=== PATIENT | female | born 1955 | race Caucasian/White ===

== ENCOUNTER 2016-06-19 18:00 | Inpatient (IN) | payer BC ==
[~2016-06-19 18:00] MED LIST: ARAVA DPS20 MG PO; ARAVA10 MG PO; CARDIZEM CD180 MG PO; CARTIA XT180 MG PO; DELTASONE DPS10 MG PO; DEMADEX20 MG PO; DIFLUCAN DPS100 MG PO; DUONEB DPS3 ML IH; DUONEB DPS3 ML PO; ELAVIL-DPS10 MG PO; ELIQUIS5 MG PO; ENBREL25 MG IM; ENBREL50 MG/1 M1 SQ; ENBREL50 MG/1 ML IM; FORTEO600 MCG/2. SQ; HYDROCODONE 5MG/5 MG PO; LEVAQUIN DPS500 MG PO; LIPITOR DPS20 MG PO; LOPRESSOR DPS100 MG PO; LOTENSIN DPS20 MG PO; MAALOX DPS30 ML PO; MAG-OX400 MG PO; MYCOSTATIN PWD15 GM TP; NEURONTIN DPS300 MG PO; NEURONTIN DPS600 MG PO; NITROSTAT0.4 MG SL; NORCO 5-325 TA1 EACH PO; PEPCID DPS20 MG PO; PROVENTIL HFA6.7 GM IH; PROVENTIL2.5 MG/3 M IH; PROZAC DPS20 MG PO; ROCALTROL DP0.25 MCG PO; SURFAK DPS240 MG PO; SURFAK240 MG PO; TYLENOL DPS325 MG PO; XANAX DPS0.25 MG PO; ZANAFLEX4 MG PO; ZEMPLAR2 MCG PO; ZOFRAN8 MG PO
[2016-07-21] MEDS ORDERED: CELEXA DPS20 MG PO (13:34)
[2016-07-21] MEDS ORDERED: DULCOLAX-DPS10 MG PR (13:41)
[2016-07-21] MEDS ORDERED: ENEMA READY TO133 ML PR (13:41)
[2016-07-21] MEDS ORDERED: BENADRYL-DPS25 MG PO (13:42)
[2016-07-21] MEDS ORDERED: COMPAZINE DPS5 MG PO (13:43)
[2016-07-21] MEDS ORDERED: SENOKOT S1 TAB PO (13:43)
[2016-07-21] MEDS ORDERED: VANCOCIN125 MG PO (13:44)
[2016-07-21] MEDS ORDERED: TIAZAC180 MG PO (13:44)
[2016-07-21] MEDS ORDERED: VITAMIN D1000 UNI1 PO (13:45)
[2016-07-21] MEDS ORDERED: MILK OF MAGNESI10 ML PO (13:45)
[2016-07-21] MEDS ORDERED: CUBICIN500 MG IV (13:46)
[2016-09-01] MEDS ORDERED: NEURONTIN DPS300 MG PO (19:38)
[2016-09-01] MEDS ORDERED: DIAMOX DPS250 MG PO (19:38)
[2016-09-01] MEDS ORDERED: PEPCID DPS20 MG PO (19:38)
[2016-09-01] MEDS ORDERED: KLOR-CON M2020 ME1 PO (19:38)
[2016-09-01] MEDS ORDERED: CELEXA DPS20 MG PO (19:38)
[2016-09-01] MEDS ORDERED: DEMADEX20 MG PO (19:38)
[2016-09-01] MEDS ORDERED: VITAMIN D1000 UNI1 PO (19:39)
[2016-09-01] MEDS ORDERED: VANCOMYCIN500 MG/20 PO (19:39)
[2016-09-01] MEDS ORDERED: CUBICIN500 MG IV (19:40)
[2016-09-01] MEDS ORDERED: NORMAL SALINE FL5 ML IV (19:40)
[2016-09-01] MEDS ORDERED: DAKIN S TP (19:40)
[2016-09-01] MEDS ORDERED: BENADRYL-DPS25 MG PO (19:41)
[2016-09-01] MEDS ORDERED: NORCO 10-325 T1 EACH PO (19:41)
[2016-09-01] MEDS ORDERED: ZOSYN 3.373.375 GM/5 IV (19:41)
[2016-09-01] MEDS ORDERED: COMPAZINE DPS5 MG PO (19:41)
[2016-09-01] MEDS ORDERED: NORCO 5-325 TA1 EACH PO (19:42)
[2016-09-01] MEDS ORDERED: NORCO 7.5-3251 EACH PO (19:42)
[2016-09-01] MEDS ORDERED: MILK OF MAGNESI10 ML PO (19:42)
[2016-09-01] MEDS ORDERED: MAALOX DPS30 ML PO (19:42)
[2016-09-01] MEDS ORDERED: SENOKOT S1 TAB PO (19:43)
[2016-09-01] MEDS ORDERED: TYLENOL DPS325 MG PO (19:45)
[2016-09-01] MEDS ORDERED: SURFAK DPS240 MG PO (19:45)
[2016-09-01] MEDS ORDERED: TYLENOL DP650 MG/20. PO (19:46)
[2016-09-01] MEDS ORDERED: XANAX DPS0.25 MG PO (19:46)
[2016-09-01] MEDS ORDERED: DUONEB DPS3 ML IH (19:46)
[2016-09-01] MEDS ORDERED: PROVENTIL HFA6.7 GM IH (19:47)
[2016-09-01] MEDS ORDERED: DULCOLAX-DPS10 MG PR (19:47)
== END 2016-07-19 14:27 | DRG 981 ==
DX: L02.416 Cutaneous abscess of left lower limb (principal); G93.40 Encephalopathy, unspecified; I47.2 Ventricular tachycardia; A04.7 Enterocolitis due to Clostridium difficile; Q44.6 Cystic disease of liver; I12.9 Hypertensive chronic kidney disease with stage 1 through stage 4 chronic kidney disease, or unspecified chronic kidney disease; I48.0 Paroxysmal atrial fibrillation; B37.49 Other urogenital candidiasis; N18.4 Chronic kidney disease, stage 4 (severe); J98.11 Atelectasis; Q61.3 Polycystic kidney, unspecified; Z68.43 Body mass index [BMI] 50.0-59.9, adult; M84.359A Stress fracture, hip, unspecified, initial encounter for fracture; E86.0 Dehydration; M84.351A Stress fracture, right femur, initial encounter for fracture; L03.032 Cellulitis of left toe; L03.115 Cellulitis of right lower limb; L03.116 Cellulitis of left lower limb; M81.0 Age-related osteoporosis without current pathological fracture; J44.9 Chronic obstructive pulmonary disease, unspecified; B96.5 Pseudomonas (aeruginosa) (mallei) (pseudomallei) as the cause of diseases classified elsewhere; J45.909 Unspecified asthma, uncomplicated; M10.9 Gout, unspecified; E78.5 Hyperlipidemia, unspecified; E21.3 Hyperparathyroidism, unspecified; D63.8 Anemia in other chronic diseases classified elsewhere; M06.9 Rheumatoid arthritis, unspecified; G47.33 Obstructive sleep apnea (adult) (pediatric); E66.01 Morbid (severe) obesity due to excess calories; M19.90 Unspecified osteoarthritis, unspecified site; F32.9 Major depressive disorder, single episode, unspecified; E87.6 Hypokalemia; R50.82 Postprocedural fever; E87.70 Fluid overload, unspecified; M47.9 Spondylosis, unspecified; E83.42 Hypomagnesemia; E55.9 Vitamin D deficiency, unspecified; Z79.01 Long term (current) use of anticoagulants; Z96.653 Presence of artificial knee joint, bilateral; Z85.3 Personal history of malignant neoplasm of breast; Z86.711 Personal history of pulmonary embolism; Z87.891 Personal history of nicotine dependence; Z82.49 Family history of ischemic heart disease and other diseases of the circulatory system; Z86.718 Personal history of other venous thrombosis and embolism; Z79.899 Other long term (current) drug therapy

== ENCOUNTER 2016-08-13 11:42 | Emergency (ER) | payer BC ==
[~2016-08-13 11:42] MED LIST changes: +BENADRYL-DPS25 MG PO; +CELEXA DPS20 MG PO; +COMPAZINE DPS5 MG PO; +CUBICIN500 MG IV; +DULCOLAX-DPS10 MG PR; +ENEMA READY TO133 ML PR; +MILK OF MAGNESI10 ML PO; +SENOKOT S1 TAB PO; +TIAZAC180 MG PO; +VANCOCIN125 MG PO; +VITAMIN D1000 UNI1 PO
--- NOTE | 2016-08-19 08:15 | ER ---
ADMIT: 08/13/2016 RM/LOC: ER [facility] MR#: [id number] [address] [address] [place] [address] Emergency Room Report SEX: F AGE: 61 : 1955 DATE: 08/13/2016 HISTORY OF PRESENT ILLNESS: A 61-year-old morbidly obese female, who had surgery in recent past on right lower extremity, apparently developed a postop complication consisting of serous drainage from the operation site per Dr. Shane, he has been following it as an outpatient. She apparently developed increasing erythema over the area yesterday and today. Dr. Shane asked she be evaluated in the Emergency Department. The patient states she is unable to see that area, so she does not know how extensive the redness is, but she did say that she had increased drainage from the wound site earlier in the day. See history and physical for remainder of information. Her white count was normal, her hemoglobin was 9.1. Lactic acid of 0.9. Chemistries were significant for creatinine 1.5. Blood cultures were obtained. I did discuss her care and lab findings and results with Dr. Shane, who requested that she be given vancomycin 1 g in the Emergency Department, send back to the care facility while he was going to follow up with apparent washout of the area this Sunday. He further requested Bactrim be added to her antibiotic regime. Going to discharge for prescription of Bactrim. DIAGNOSIS: Cellulitis. Harvinder Tadeo MD/ hilary JOB #: [id number] CC: Harvinder Tadeo MD, Attending Physician
[2016-09-01] MEDS ORDERED: KLOR-CON M2020 ME1 PO (19:38)
[2016-09-01] MEDS ORDERED: DEMADEX20 MG PO (19:38)
[2016-09-01] MEDS ORDERED: PEPCID DPS20 MG PO (19:38)
[2016-09-01] MEDS ORDERED: DIAMOX DPS250 MG PO (19:38)
[2016-09-01] MEDS ORDERED: NEURONTIN DPS300 MG PO (19:38)
[2016-09-01] MEDS ORDERED: CELEXA DPS20 MG PO (19:38)
[2016-09-01] MEDS ORDERED: VANCOMYCIN500 MG/20 PO (19:39)
[2016-09-01] MEDS ORDERED: VITAMIN D1000 UNI1 PO (19:39)
[2016-09-01] MEDS ORDERED: DAKIN S TP (19:40)
[2016-09-01] MEDS ORDERED: CUBICIN500 MG IV (19:40)
[2016-09-01] MEDS ORDERED: NORMAL SALINE FL5 ML IV (19:40)
[2016-09-01] MEDS ORDERED: COMPAZINE DPS5 MG PO (19:41)
[2016-09-01] MEDS ORDERED: BENADRYL-DPS25 MG PO (19:41)
[2016-09-01] MEDS ORDERED: NORCO 10-325 T1 EACH PO (19:41)
[2016-09-01] MEDS ORDERED: ZOSYN 3.373.375 GM/5 IV (19:41)
[2016-09-01] MEDS ORDERED: MILK OF MAGNESI10 ML PO (19:42)
[2016-09-01] MEDS ORDERED: MAALOX DPS30 ML PO (19:42)
[2016-09-01] MEDS ORDERED: NORCO 5-325 TA1 EACH PO (19:42)
[2016-09-01] MEDS ORDERED: NORCO 7.5-3251 EACH PO (19:42)
[2016-09-01] MEDS ORDERED: SENOKOT S1 TAB PO (19:43)
[2016-09-01] MEDS ORDERED: SURFAK DPS240 MG PO (19:45)
[2016-09-01] MEDS ORDERED: TYLENOL DPS325 MG PO (19:45)
[2016-09-01] MEDS ORDERED: DUONEB DPS3 ML IH (19:46)
[2016-09-01] MEDS ORDERED: XANAX DPS0.25 MG PO (19:46)
[2016-09-01] MEDS ORDERED: TYLENOL DP650 MG/20. PO (19:46)
[2016-09-01] MEDS ORDERED: PROVENTIL HFA6.7 GM IH (19:47)
[2016-09-01] MEDS ORDERED: DULCOLAX-DPS10 MG PR (19:47)
== END 2016-08-13 16:37 | disposition home or self-care (01) ==
LOC: ER 11:42
DX: L03.115 Cellulitis of right lower limb (principal); Z79.899 Other long term (current) drug therapy

== ENCOUNTER 2016-08-16 06:28 | Inpatient (IN) | payer BC ==
[~2016-08-16] VITALS: Ht 172.7 cm; Wt 174.3 kg
--- NOTE | ~2016-08-16 | WND ---
ADMIT: 08/16/2016 RM/LOC: 528 [facility] MR#: [id number] [facility] [id number] [address] [address] [place] [address] Wound Care Clinic SEX: F AGE: 61 : 1955 DATE OF VISIT: 08/23/2016 TIME IN: 1545 hours. TIME OUT: 1610 hours. REASON FOR VISIT: Wound VAC dressing change to right hip. HISTORY OF PRESENT ILLNESS: This is a 61-year-old female who presented to the emergency room on 08/13/2016 with a history of surgery on the right lower extremity. She developed a postoperative complication consisting of serous drainage. Dr. Shane had performed a right femoral nailing with the TFN on 07/14/2016. She was being followed by Dr. Shane. However, it became more red and she noticed increased drainage. So, she presented to the emergency room. She received a dose of vancomycin. Then, on 08/21/2016, she was taken to surgery by Dr. Shane for an irrigation and debridement wound VAC placement to the right hip. Dr. Hale was consulted from Infectious Disease. She was to return to surgery on August 19 for another VAC dressing change. However, she is noted to have a disconjugate gaze. Therefore, Neurology was consulted. 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 She continues on wound VAC therapy and her wound VAC dressing was changed by Wound Care on 08/21/2016. Wound Care returns today for further VAC change. PAST MEDICAL HISTORY: C. difficile enteritis. Left hip total arthroplasty with subcutaneous abscess. Right hip nondisplaced fracture, status post nailing by Dr. Shane. Right hip incisional infection. History of DVT and pulmonary emboli, on Eliquis. Chronic obstructive pulmonary disease. Chronic kidney disease. Polycystic liver and kidney. Hypertension. Hyperlipidemia. Rheumatoid arthritis. Prior history of breast cancer. Obstructive sleep apnea. Morbid obesity. Prior history of pulmonary emboli. Osteoporosis. Paroxysmal atrial fibrillation. Episodes of V-Tach. PAST SURGICAL HISTORY: Includes bilateral total knee, replacement of left hip, pinning of right hip. ALLERGIES: Entex LA, Biaxin, Femara, macrolide antibiotics, guaifenesin, phenylephrine, clarithromycin, metoprolol, phenylpropanolamine, letrozole, and adalimumab. CURRENT MEDICATIONS: Per the MAR. Please see the MAR for further details. 1. Celexa. 2. Diamox. 3. Neurontin. 4. Pepcid. 5. Vancomycin. 6. Vitamin D. 7. Cubicin. 8. Zosyn. ADMIT: 08/16/2016 RM/LOC: 528 [facility] MR#: [id number] [facility] [address] [address] [place] [address] Wound Care Clinic SEX: F AGE: 61 : 1955 PRN medications: 1. Benadryl. 2. Compazine. 3. Flexeril. 4. Hydrocodone/acetaminophen. 5. Maalox. 6. Milk of magnesia. 7. Senokot. 8. Surfak. 9. Tylenol. 10.Xanax. 11.DuoNeb. 12.Proventil. 13.Dulcolax suppository. 14.Fleets enema. 15.Tylenol suppository. 16.Nitrostat. 17.Mycostatin powder. 18.Benadryl. 19.Morphine. 20.Phenergan. SOCIAL HISTORY: She is . Former smoker. Does not consume alcoholic beverages. Unable to work recently because of ongoing health issues. Currently at [facility]. FAMILY HISTORY: Positive for coronary artery disease, polycystic disease, breast cancer, asthma, and hypertension. REVIEW OF SYSTEMS: She is examined in her hospital room where she is awake, alert, and oriented x3. She had an MRI earlier today. She denies any recent fever or chills. No nausea or vomiting. No cough, cold, or chest pain. She does have pain in her hip that she rates to an 8. She is on a low air loss mattress. PHYSICAL EXAMINATION: VITAL SIGNS: 97.5, 89, 18, blood pressure 141/79, O2 sats with nasal cannula is 98%. Focused exam is to her right hip. She has an incisional dehiscence from the recent I and D that measures 10.5 cm x 3 cm, depth of 7.5 cm. It does have visible firm red granulation tissue noted, serosanguineous drainage in the canister. No surrounding erythema or induration. More proximal to this is an area of skin tear with denudement that measures 1.5 x 2 cm. Red moist wound base. ASSESSMENT: 1. Full-thickness right hip wound, status post I and D of infection. ADMIT: 08/16/2016 RM/LOC: 528 [facility] MR#: [id number] [address] [place] [id number] [place] [address] Wound Care Clinic SEX: F AGE: 61 : 1955 2. Category 3 skin tear, right hip. TREATMENT PLAN: The old VAC dressing was removed assuring that 1 piece of black foam was removed. The wound was rinsed vigorously with normal saline and patted dry. No Sting Barrier wipe was placed to periwound area and over the skin tear. This was allowed to dry. Wound edges were protected with wound drape. One piece of black foam was placed in the base of the wound. The system was sealed and the VAC reinstituted at -125 mmHg continuous. To the skin tear, the Mepilex border was applied. We will continue the wound VAC dressing changes on Sunday, Sunday, and Sunday. Thank you for this referral. Laura Alarcon APRN/ hilary JOB #: [id number] CC: Efraín Shane, Attending Physician Alexandru Chris, Family Physician
--- NOTE | 2016-08-17 06:47 | CO ---
ADMIT: 08/16/2016 RM/LOC: 503 [facility] MR#: [id number] [address] [address] [place] [address] Consultation SEX: F AGE: 61 : 1955 DATE OF CONSULTATION: 08/16/2016 ATTENDING PHYSICIAN: Efraín Shane CONSULTING PHYSICIAN: Alexandru Chris MD CHIEF COMPLAINT: Abscessed right hip. HISTORY OF PRESENT ILLNESS: Renetta is a 61-year-old female with multiple hospitalizations here at [facility] over the last 6 months. She underwent incision and drainage of a right subcutaneous abscess today by Dr. Shane. Originally scheduled for outpatient; however, the abscess was deep enough nearly down to the tremayne that was placed for her fractured hip. Therefore, she is admitted to hospital for further wound treatment and wound VAC, IV antibiotics. She had hospitalization here at [facility] in May of this year for a subcutaneous abscess on her left hip. She has a previous history of left total hip arthroplasty. She developed subcutaneous abscess, was I and D'd, placed on antibiotics, developed C. diff enteritis. She also had right hip pain, was found on x-ray to have a nondisplaced fracture of right hip, had transfemoral nailing of the right hip by Dr. Shane on July 14 of this year. Due to weakness and inability care for herself, she was admitted to [facility] for rehab. She has been going there and getting physical therapy and rehab. She developed increased pain, swelling, discomfort over the right hip incision and was followed by Dr. Shane as an outpatient. He drained her in the office, felt it was a seroma. It was not healing, so she was brought into the operating room today where she had opening of the area and it showed a fairly deep abscess and wound VAC was placed. In addition to the other complications, she has multiple other medical problems well outlined in recent history and physicals. Of importance, she has history of DVT and pulmonary emboli, has been on Eliquis. This has been stopped for the last 5 days in anticipation of this surgery. Currently, she feels shortness of breath if she lies flat, but sitting up, she feels okay. She is not having any chest pain. She denies any leg or calf pain. PAST MEDICAL HISTORY: Well-outlined in recent history and physical. She has had multiple hospitalizations here, most recently being in June for the nailing of her right hip for nondisplaced fracture. Her other significant medical problems include: 1. Chronic obstructive pulmonary disease. 2. Chronic kidney disease. 3. Polycystic kidney and liver. 4. Hypertension. 5. Hyperlipidemia. ADMIT: 08/16/2016 RM/LOC: 503 [facility] MR#: [id number] [address] [address] [place] [address] Consultation SEX: F AGE: 61 : 1955 6. Rheumatoid arthritis. 7. Prior history of breast cancer. 8. Obstructive sleep apnea. 9. Morbid obesity. 10.Prior history of pulmonary emboli. 11.Osteoporosis. 12.History of paroxysmal atrial fibrillation. 13.History of episodes of V-Tach. PAST SURGICAL HISTORY: Previous surgeries include bilateral total knee replacement of the left hip, pinning I believe, and then the recent right hip pinning. CURRENT MEDICATIONS: 1. Benadryl. 2. Compazine. 3. Celexa. 4. Dulcolax. 5. DuoNeb. 6. Eliquis 5 mg daily. 7. Lortab p.r.n. for pain. 8. Imodium p.r.n. for diarrhea. 9. Lipitor 20 mg at bedtime. 10.Lotensin 20 mg daily. 11.Neurontin 300 mg b.i.d. 12.Nystatin powder. 13.Pepcid 20 mg b.i.d. 14.Proventil inhaler p.r.n. 15.Surfak p.r.n. 16.Tiazac 180 mg daily. 17.Vitamin D daily. SOCIAL HISTORY: All unchanged other than noted above. Refer to recent history and physical. FAMILY HISTORY: All unchanged other than noted above. Refer to recent history and physical. REVIEW OF SYSTEMS: All unchanged other than noted above. Refer to recent history and physical. PHYSICAL EXAMINATION: GENERAL: A 61-year-old female. She is alert, cooperative, oriented x3. VITAL SIGNS: At this time were stable. BP is 138/88, respiratory rate is 22, temp 98.2. O2 saturation with oxygen on is 95% at 2 L. HEENT: Eyes PERRL. EOMs intact. Throat is moist, not inflamed. NECK: Supple. LUNGS: Occasional expiratory wheeze. No rales, rhonchi. No focal wheezing. ADMIT: 08/16/2016 RM/LOC: 503 [facility] MR#: [id number] [address] [place] [phone] [place] [address] Consultation SEX: F AGE: 61 : 1955 No respiratory distress. HEART: Regular rate. No murmur. BREASTS: Not examined. ABDOMEN: Morbidly obese with large palpable masses consistent with her polycystic liver and polycystic kidneys. GENITOURINARY: Deferred. RECTAL: Deferred. EXTREMITIES: She has marked venous stasis edema of both lower extremities. SKIN: She has marked edema of the panniculus both on the right and left sides with some peau d'orange effect of the skin due to subcutaneous edema. She does have a wound VAC in place over her right hip with suction in place. DIAGNOSTIC IMPRESSION: 1. Status post I and D of deep abscess, right hip. 2. Status post transfemoral nailing of the right hip on July 14 of this year. 3. Status post I and D of left subcutaneous hip abscess on June 20 of this year. 4. Morbid obesity. 5. Recent Clostridium difficile enteritis. 6. History of deep vein thrombosis, pulmonary emboli, recently on Eliquis but discontinued. 7. Chronic kidney disease. 8. Hypertension. 9. Anemia of chronic disease. 10.Osteoporosis. 11.Sleep apnea, on CPAP. 12.Hyperlipidemia. 13.Rheumatoid arthritis. PLAN: We will start patient on IV Zosyn and vancomycin. Infectious Disease has been consulted. We will defer to their judgment on antibiotic usage. She is at increased risk for C. diff enteritis. We will start on Lovenox subcutaneously for DVT prevention with her history of previous clots and her morbid obesity. She is at extreme high risk for recurrent clots contributed to by her inactivity. Alexandru Chris MD/ hilary JOB #: [id number] CC: Efraín Shane, Attending Physician Alexandru Chris, Family Physician
--- NOTE | 2016-08-18 07:48 | OR ---
ADMIT: 08/16/2016 RM/LOC: 503 [facility] MR#: [id number] [address] [address] [place] [address] Operative/Delivery Room Report SEX: F AGE: 61 : 1955 SURGERY DATE: 08/16/2016 SURGEON: Efraín Shane MD INTEGRATION LEAD: Isaiah Oliveira PA-C. PREOPERATIVE DIAGNOSIS: Right hip infection. POSTOPERATIVE DIAGNOSIS: Right hip infection. PROCEDURE PERFORMED: Irrigation, debridement and wound VAC placement of the right hip infection. BLOOD LOSS: Twenty. Did take cultures, tissues and swab. COMPLICATIONS: None. INDICATIONS: Ms. Stokes is a 61-year-old female, morbidly obese, had a stress fracture in the right hip that was found while she was an inpatient for a fever of unknown origin with an abscess in her left hip, etc. After waiting as long as I possibly could for nearly a month, it was finally determined by both the Infectious Disease and her primary medical doctor that she was as stable as possible for surgery and cleared of infection and was okay to have surgery. I went ahead with a TFN for the right subtroch stress fracture, that was about a month ago. Subsequently, the most proximal portion of the incision failed to heal, had persistent open wound about half a cm with serous drainage. I attempted to watch this with just continued wound care for a few weeks, put on antibiotics about a week ago. It failed to resolve and has been now about four weeks so we offered to go ahead and bring her in and wash it out and she is here for that now. DESCRIPTION OF PROCEDURE: The patient was identified in the preoperative holding area. Informed consent was confirmed, site was marked. Brought to the OR. General anesthesia was induced. We put her in the lateral decubitus position with the right hip up, prepped and draped in the usual sterile fashion. Time-out was performed. Preop antibiotics were held until we got culture sample. Made an incision through the old incision, basically opened up that proximal incision back up where the drainage was. After took culture palpated and it seemed to track down to the greater trochanter. Did not tunnel anywhere deep. I did not feel any exposed metal it but did go right down to the trochanter. There was some cloudy purulent appearing fluid in there. It looked more infectious than fat necrosis to me, but no real big pocket of pus or anything in there. Once we got it opened up and kind of found the extent of the tunneling in the pocket there, had it opened up quite a bit and excised the nonhealing portion of the skin and suture material and kind of what appeared to be scarred down and fat. Send that for culture ADMIT: 08/16/2016 RM/LOC: 503 [facility] MR#: [id number] [address] [address] [place] [address] Operative/Delivery Room Report SEX: F AGE: 61 : 1955 and then irrigated copiously with 3 L of normal saline with bacitracin and then soaked it in 3% Betadine solution of a L of that and then washed it with another 3 L of normal saline with bacitracin. Then I placed about 2 g of Vanco powder deep within the wound and then put a wound VAC in place set to suction without any problems. We then brought her to her hospital bed, extubated her, brought to the postop care in good condition. No complications. Postoperatively, I am going to go ahead and admit her to the hospital. Get Medicine and Infectious Disease to consult. We will keep the wound VAC running at continuous suction at 125, to be changed every three days. We will await culture results and recommendations by the Infectious Disease. We will plan on revisiting the wound if needed for a second-look later this wee depending on the culture results. Efraín Shane MD/ marilee JOB #: [id number] CC: Efraín Shane, Attending Physician Alexandru Chris, Family Physician
--- NOTE | 2016-08-25 12:59 | CO ---
ADMIT: 08/16/2016 RM/LOC: 528 [facility] MR#: [id number] [address] [address] [place] [address] Consultation SEX: F AGE: 61 : 1955 DATE OF CONSULTATION: 08/17/2016 ATTENDING PHYSICIAN: Efraín Shane CONSULTING PHYSICIAN: Kerrie Hale MD REASON FOR CONSULT: Right hip infection. Thank you, Dr. Shane, for the consult and involving me in this patient's care. HISTORY OF PRESENT ILLNESS: Ms. Stokes is a 61-year-old woman with multiple medical problems, well known to me, presented with complaint of right hip pain. She had a prolonged hospital course in June where she was diagnosed with left thigh multi-drug resistant pseudomonas infection and was treated with antibiotics. Subsequently, she was noted to have right femur nondisplaced fracture and underwent a right femoral nailing with a TFN on July 14, [address] Shane. Apparently, there was some increased pain, redness, and swelling over the right hip incision and the most proximal portion of the incision failed to heal with persistent serous drainage. She was started on oral Bactrim, which did not improve her symptoms. Hence, she was admitted yesterday and underwent irrigation and debridement and wound VAC placement of the right hip infection. Per the operative note, there was cloudy purulent fluid tunneling and tracking down to the greater trochanter. He did not feel any exposed metal in the OR. The cultures are pending at this time. At present, the patient denies any complaints. During her last hospital course, she also had Clostridium difficile diarrhea and she denies any episodes of diarrhea during this hospital course. PAST MEDICAL HISTORY: 1. Asthma. 2. Remote history of breast cancer status post lumpectomy. 3. Chronic kidney disease secondary to polycystic kidney disease. 4. Hypertension. 5. Hyperlipidemia. 6. Left thigh multi-drug resistant pseudomonas abscess status post drainage. 7. Sleep apnea. 8. Morbid obesity. 9. Clostridium difficile colitis. 10.Rheumatoid arthritis. 11.Gout. 12.Lumbar spondylosis. 13.History of deep venous thrombosis and pulmonary embolism. 14.Atrial fibrillation. PAST SURGICAL HISTORY: 1. Bilateral knee replacement. 2. Left subtrochanteric femur fracture. 3. Right femur fracture repair. ADMIT: 08/16/2016 RM/LOC: 528 [facility] MR#: [id number] [address] [address] [place] [address] Consultation SEX: F AGE: 61 : 1955 4. Shoulder surgery. ALLERGIES: MACROLIDE, PHENYLEPHRINE, GUAIFENESIN, CLARITHROMYCIN, LETROZOLE, AND ADALIMUMAB. CURRENT MEDICATIONS: 1. Celexa. 2. Lipitor. 3. Lotensin. 4. Neurontin. 5. Pepcid. 6. Tiazac. 7. Vitamin D. 8. Ancef. 9. Vancomycin 1.75 g every 12 hours. 10.Zosyn 3.375 g every 8 hours, which was stopped today. SOCIAL HISTORY: The patient currently lives in a senior living. Denies any smoking, alcohol, or recreational drug use. FAMILY HISTORY: Significant for breast cancer in her sister. REVIEW OF SYSTEMS: Ten-point review of systems negative except as mentioned in HPI. PHYSICAL EXAMINATION: VITAL SIGNS: Current temperature 99.2, T-max 101.1, heart rate 76, respirations 16, blood pressure 104/56, and 99% on 2 L. GENERAL: In no acute distress. HEENT: Head is normocephalic and atraumatic. Extraocular movements intact. LYMPH: No palpable anterior/posterior cervical or supraclavicular lymphadenopathy. CHEST: Decreased breath sounds bilaterally. No wheezes, rales, or rhonchi. CARDIOVASCULAR: S1, S2 heard. Regular rate and rhythm. ABDOMEN: Soft, obese, nontender. MUSCULOSKELETAL: The right hip, there is significant erythema around her thigh prior incision site. There is a wound VAC on the proximal incision site. Mild tenderness to palpation. Her right knee is mildly warm to touch and tender on deep palpation. Left knee unremarkable. PSYCH: Normal affect. Memory intact. DATA REVIEW: Blood cultures are no growth to date. CBC today shows white count of 5.5, hemoglobin 9.1, and platelet count 137. BMP shows creatinine of 1.8. The wound cultures are pending at this time. ASSESSMENT AND PLAN: 1. Right hip wound dehiscence and infection status post irrigation and drainage and wound VAC placement postop day 1. Cultures are pending at this time. She has a history of prior multi-drug resistant pseudomonas. ADMIT: 08/16/2016 RM/LOC: 528 [facility] MR#: [id number] [address] [place] [phone] [facility] [place] [place] [address] Consultation SEX: F AGE: 61 : 1955 I will restart her Zosyn 3.375 g every 8 hours and add daptomycin 6 mg/kg IV once daily. I will check a baseline creatine kinase level. We will narrow antibiotics after culture is finalized. She has hardware in her right hip hence we will have to treat her with prolonged course of antibiotics. 2. History of Clostridium difficile colitis. I will start her empirically on oral vancomycin 125 mg every 6 hours. 3. Chronic kidney disease. 4. Obesity. 5. Bilateral total knee arthroplasty. Her right knee is mildly warm to touch. We will monitor closely. 6. Atrial fibrillation. 7. Obesity. 8. Gout. 9. History of deep venous thrombosis, currently off Eliquis. 10.Osteoporosis. 11.Rheumatoid arthritis. Thank you for the consult, and I will continue to follow the patient. Kerrie Hale MD/ hilary JOB #: [id number] CC: Efraín Shane, Attending Physician Alexandru Chris, Family Physician
--- NOTE | 2016-08-25 16:04 | CO ---
ADMIT: 08/16/2016 RM/LOC: 528 [facility] MR#: [id number] [address] [address] [place] [address] Consultation SEX: F AGE: 61 : 1955 DATE OF CONSULTATION: 08/24/2016 ATTENDING PHYSICIAN: Efraín Shane CONSULTING PHYSICIAN: Mayi Johnson MD REASON FOR CONSULTATION: Chronic kidney disease stage 4, contrast-induced nephropathy prophylaxis. HISTORY OF PRESENT ILLNESS: Renetta is a 61-year-old female, who is well known to me. She has chronic kidney disease stage 4, secondary to polycystic kidney disease. She has had several hospitalizations over the last few months. She was admitted at this time with left hip pain. She was admitted initially to the hospital with hip pain. She was eventually found to have a right hip abscess that she is status post I and D. During this hospitalization, she was noted to have double vision and there was a concern for cavernous sinus thrombosis. She ended up needing a CT scan with contrast and I was consulted for contrast-induced nephropathy prophylaxis. I give her some IV fluids overnight that were bicarbonate containing. We also gave her a dose of N- acetylcysteine and she is receiving her 2nd dose this morning. Her CT scan last night was negative. At the time of this encounter, she is confused. She thinks her breathing is fair. Appetite is poor. She denies any urinary complaints. She has not been getting out of the bed much. Denies any dyspnea or chest pain. She has been moving her bowels okay. REVIEW OF SYSTEMS: A complete review of systems is negative in detail except as mentioned in the history of present illness above. PAST MEDICAL HISTORY: 1. Polycystic kidney disease. 2. Chronic kidney disease stage 4 with a baseline creatinine that generally runs in the low 2s. 3. Hypertension. 4. Renal osteodystrophy-secondary hyperparathyroidism and vitamin D deficiency. 5. Osteoarthritis. 6. Fibromyalgia. 7. Dyslipidemia. 8. Rheumatoid arthritis. 9. Depression. 10.Asthma. 11.PE. 12.DVT. MEDICATIONS: Reviewed in the chart next. FAMILY HISTORY: She has numerous family members affected with polycystic ADMIT: 08/16/2016 RM/LOC: 8 [facility] MR#: [id number] [address] [address] [place] [address] Consultation SEX: F AGE: 61 : 1955 kidney disease including her siblings. SOCIAL HISTORY: She is . She was living at home previously. No tobacco, alcohol or recreational drug use. ALLERGIES: 1. ENTEX. 2. BIAXIN. 3. FEMARA. 4. MACROLIDE ANTIBIOTICS. 5. PHENYLEPHRINE. 6. CLARITHROMYCIN. 7. LETROZOLE. 8. ADALIMUMAB. PHYSICAL EXAMINATION: VITAL SIGNS: Temperature 98.8 Fahrenheit, pulse 92, blood pressure 135/81. GENERAL: She is in bed. She is comfortable. HEENT: Head is nontraumatic and normocephalic. Extraocular movements are intact. Dry mucosa. NECK: Supple without any JVD. CHEST: Clear to auscultation. CVS: Regular rate and rhythm. S1, S2 heard. No rubs, murmurs, or gallops. ABDOMEN: Soft and obese. EXTREMITIES: She has pedal edema. She has 1+ edema in her lower legs. NEUROLOGIC: She is alert, but not oriented. LABORATORY DATA: Reviewed. BMP with sodium 142, potassium 4.5, CO2 of 23, creatinine 1.5, calcium 8.8, magnesium 1.8. Hemoglobin 9.5. ASSESSMENT AND PLAN: ADMIT: 08/16/2016 RM/LOC: 8 [facility] MR#: [id number] [address] [facility] [address] [place] [address] Consultation SEX: F AGE: 61 : 1955 1. Chronic kidney disease stage 4-secondary to polycystic kidney disease. Her kidney function is stable. Her creatinine is lower than her usual baseline. This is likely secondary to loss of muscle mass as well as volume expansion. 2. Hypertension/edema-blood pressure is acceptable, she has extravascular volume expansion. I will resume her diuretics when feasible. 3. Chronic contrast-induced nephropathy prophylaxis-I have given her some IV fluids. Her Diamox was held. Her creatinine is stable this morning. It is probably okay to resume her Diamox. I will start her on diuretics if her kidney function stays stable in the next 24-48 hours. Thank you for this consultation. Please do not hesitate to contact with any questions. Mayi Johnson MD/ hilary JOB #: [id number] CC: Efraín Shane, Attending Physician Alexandru Chrsi, Family Physician
--- NOTE | 2016-08-25 18:45 | NUR ---
AT 1215 WOCN NURSE COMES TO CHANGE WOUND VAC. PT HAD LARGE BLOOD CLOT W/IN WOUND VAC SENSOR. WOCN NURSE CALLS STATES THAT THERE IS ALOT OF BLOOD PULSATING FORM THE WOUND BED, KWAN PRESSURE TO WOUND BED W/ KERLIX ROLLS-BLEEDING CONTINUES. RAPID RESPONSE CALLED. VSS STABLE SEE FLOW SHEET. DR LEIGH CALLED AND DOES COME TO SEE. HE APPLIES KERLIX ROLLS IN WOUND BED AND PRESSURE DRESSING.
--- NOTE | 2016-08-25 18:51 | NUR ---
[address] LEIGH TO INFORM HIM PT IS STILL BLEEDING AND HAS SOAKED THRU THE DRSG WELL THE REINFORCED DRESSING WHICH WAS CHANGED TWICE. DR LEIGH AND ELIE DUMONT COMES AND ASSESSES AREA, APPLIES SILVER NITRATE TO AREA.
--- NOTE | 2016-08-28 07:14 | OR ---
ADMIT: 08/16/2016 RM/LOC: 528 [facility] MR#: [id number] [address] [address] [place] [address] Operative/Delivery Room Report SEX: F AGE: 61 : 1955 SURGERY DATE: 08/25/2016 SURGEON: Efraín Shane MD PREOPERATIVE DIAGNOSIS: Right postop wound with infection. POSTOPERATIVE DIAGNOSIS: Right postop wound with infection. PROCEDURE PERFORMED: Right hip irrigation and debridement down to the fascial layer, ITB band. Wound VAC changed and an antibiotic impregnated bead placement. BLOOD LOSS: 20. COMPLICATIONS: None. ASSISTANTS: 1. Isaiah Oliveira PA-C. 2. TIM Tracy. INDICATION: Renetta is a 61-year-old female, we had put a tremayne in for stress fracture and we have been dealing with a nonhealing and infected wound. She had an I and D over a week ago, then could get cleared because she had apparently a new onset of double vision with 4th nerve palsy. She has now been cleared and we are bringing her back for repeat I and D now. DESCRIPTION OF PROCEDURE: The patient was identified in the preoperative holding area and informed consent was confirmed, site was marked. Brought to the OR, placed supine, general anesthesia induced. She was then placed in the lateral decubitus position, prepped and draped in the usual sterile fashion. Time-out was performed. Preop antibiotics were confirmed. We began by taking a couple pre wash cultures, took some nonviable kind of scarred down looking fat and sent that for culture. We are left with in a little bit of increase in space. It did track anteriorly and posteriorly kind of on top of the IT band. The IT band appeared intact actually, did not seem to go down. The last time I thought I had felt it come down through the trochanter and now as I clear off more I see that it just does not seem to be deep to the IT band. After debriding kind of this nonviable stuff, I irrigated with like ADMIT: 08/16/2016 RM/LOC: 528 [facility] MR#: [id number] [address] [address] [place] [address] Operative/Delivery Room Report SEX: F AGE: 61 : 1955 3 L of normal saline with bacitracin, then I soaked it in Betadine again and then I washed it out again with another 3 L and then I placed antibiotic impregnated beads with vancomycin and tobramycin deep within the wounds and into the areas where it kind of tunneled tracked. I then put two large wound VAC sponges in, one black and then one silver impregnated and then placed that on, that sucked down really nice, no leaks. She was then extubated, brought to the postoperative care unit in good condition. No complications. Postoperatively, we will follow the cultures. If these cultures run negative we will have to decide if I want to try to close it. There is a significant space there now so I may need to treat her with a wound VAC for a while to get that to granulate in perform I am able close it. We will follow the cultures for now. Efraín Shane MD/ marilee JOB #: [id number] CC: Efraín Shane, Attending Physician Alexandru Chris, Family Physician
--- NOTE | 2016-09-01 13:08 | CO ---
ADMIT: 08/16/2016 RM/LOC: 528 [facility] MR#: [id number] [address] [address] [place] [address] Consultation SEX: F AGE: 61 : 1955 DATE OF CONSULTATION: 08/29/2016 ATTENDING PHYSICIAN: Efraín Shane CONSULTING PHYSICIAN: Minna Paz APRN TIME IN: 0835 hours. TIME-OUT: 0915 hours. REASON FOR CONSULTATION: Supportive Care consultation was requested by Dr. Cummings for discussion of goals for care. HISTORY OF PRESENT ILLNESS: Renetta is a 61-year-old, female with a very complex medical history including COPD, asthma, morbid obesity, chronic kidney disease secondary to polycystic kidney disease, as well as rheumatoid arthritis, and a history of DVT/PE. She has been hospitalized here at our facility 7 times since November of 2015 for various issues. Recently, she was here in June of 2016 with a left thigh wound that had drainage. She was found to have multi drug-resistant Pseudomonas infection. Additionally, at that time, she was noted to have a right femur fracture and underwent nailing with TFN. She then was discharged, but developed increasing redness, swelling, and drainage, which prompted readmission on 08/16 for an I and D with wound VAC placement. During her hospital stay, she did have episodes of blurry vision and Neurology was consulted. Her CT scan did reveal no acute changes. She underwent a second I and D on 08/25 and now has a wound VAC to the right hip. She is on IV antibiotics and this is to continued for the next couple weeks. She is nearing the point of getting ready to discharge back to her nursing facility. Due to her multiple issues and complexities, supportive care consultation was requested to discuss goals for care. In terms of advanced directives, the patient is a full code. She does have a living will and durable [id number] for health care on file. She designates her , Jason Stokes, whose phone #[phone] and [phone] as her durable [id number] for health care and her daughter, Georgette Jefferson, whose phone #[phone] and [phone] as the successor healthcare power- of-securities attorney. Symptomatically, the patient reports that overall she is fairly comfortable. She does have intermittent pain over the right hip but this is controlled with her pain medication. She denies shortness of breath. She is fatigued and weak. She states that her appetite has been poor. PAST MEDICAL HISTORY: COPD, chronic kidney disease, polycystic kidney, hypertension, hyperlipidemia, rheumatoid arthritis, prior history of breast cancer, obstructive sleep apnea, morbid obesity, history of pulmonary embolism, osteoporosis, paroxysmal atrial fibrillation, episodes of ventricular tachycardia in the past. ADMIT: 08/16/2016 RM/LOC: 528 [facility] MR#: [id number] [address] [place] [address] [place] [address] Consultation SEX: F AGE: 61 : 1955 PAST SURGICAL HISTORY: Previous surgeries include bilateral total knee replacements, recent right hip surgery. ALLERGIES: THE PATIENT IS ALLERGIC TO: 1. MACROLIDE ANTIBIOTICS. 2. GUAIFENESIN. 3. CLARITHROMYCIN. 4. METOPROLOL. 5. BIAXIN. 6. FEMARA. 7. ENTEX. 8. HUMIRA. SOCIAL HISTORY: The patient is . She has four children. She does not use alcohol or tobacco. She was most recently living at [facility]. FAMILY HISTORY: Her father at age 52 from coronary artery disease, and her mom at age 32 from polycystic kidney disease. She had a sister at age 38 from heart disease, and a nephew at a young age from polycystic kidney disease as well. FUNCTIONAL REVIEW: Currently, the patient is requiring total care. She has a lift for transfers. Her intake is reduced. Her current palliative performance score is 30%. In discussion with her, she was requiring full assistance at the senior living prior to this admission. It sounds like her palliative performance scale just prior to admission was a 30% to 40%. REVIEW OF SYSTEMS: A 10-point review of systems was completed and other than those pertinent positives and negatives mentioned in the HPI, it is negative. PHYSICAL EXAMINATION: GENERAL: The patient is examined in the bed. She is in no acute distress. VITAL SIGNS: Temperature 97.9, pulse 87, respirations 16, blood pressure 126/55, oxygen 95% on room air. HEENT: Head is normocephalic. Pupils are equal, round, and reactive with a diameter of 3 mm bilaterally. Oral mucosa pink and moist with fair dentition. NECK: Supple. RESPIRATORY: Respirations are equal and nonlabored. LUNGS: Diminished throughout. CARDIOVASCULAR: Rate and rhythm regular without murmurs, rubs, or gallops. 2+ bilateral lower extremity edema noted. GASTROINTESTINAL: Soft, nontender. Bowel sounds are positive. MUSCULOSKELETAL: Generalized weakness. INTEGUMENTARY: Skin turgor is fair. She does have a dressing over the right hip. NEUROLOGIC: Alert and oriented x3. She will follow commands. PSYCHIATRIC: Calm and cooperative. No agitation or delirium noted. ADMIT: 08/16/2016 RM/LOC: 528 [facility] MR#: [id number] [address] [place] [phone] [place] [address] Consultation SEX: F AGE: 61 : 1955 DIAGNOSTIC DATA: Sodium 143, potassium 2.8, BUN 11, creatinine 1.3, total protein 6.3, albumin 2.5. WBC 7.7, hemoglobin 7.9, hematocrit 26.1, platelets 107. IMPRESSION: 1. Physical debility. 2. Fatigue. 3. Malaise. 4. Right hip pain. 5. Malnutrition. 6. Fevers. 7. Right hip abscess, status post I and D with wound VAC placement. Cultures are growing methicillin-resistant staphylococcus aureus .. 8. Anemia. 9. Chronic kidney disease, stage 4, secondary to polycystic kidney disease. 10.Hypokalemia. 11.Asthma. 12.Morbid obesity. 13.Rheumatoid arthritis. 14.Palliative care. 15.The patient is a full code. PLAN OF TREATMENT: 1. I did attempt to meet with the patient yesterday, however, she was confused. Today, she is much more alert and oriented and appropriate. She is oriented to person, place, and time. She is able to give me details regarding her decline over the past few months. We did discuss her status and goals for the time ahead. She acknowledges that the last few months have been very rough on her. She is hopeful that she will improve in the time ahead. She states that her goal is to get stronger and to get back home. I asked if she felt like this would be possible given her overall complexities and she states "it will happen." Much support was given to the patient. The patient does agree to ongoing goals for care discussions pending her status. ADMIT: 08/16/2016 RM/LOC: 528 [facility] MR#: [id number] [address] [place] [phone] [place] [address] Consultation SEX: F AGE: 61 : 1955 2. I did review code status with the patient and she is very clear that she wants to be a full code. She does state that she would not want to be kept alive on machines " long-term." She states that her spouse and children would be prepared to make decisions in that situation. 3. Overall, the patient is comfortable with her current pain medication regimen and denies complaints. 4. We will continue to follow heading the time ahead pending her status to assist with goals. We would like to thank Dr. Cummings for the invitation to participate in this patient's care. Total consultation time was 40 minutes from 0835 hours to 0915 hours with 25 minutes from 0840 hours to 0905 hours spent [id number] with the patient discussing goals for care and providing counseling and support. Minna Paz APRN/ hilary JOB #: [id number] CC: Efraín Shane, Attending Physician Alexandru Chris, Family Physician
[2016-09-01] MEDS ORDERED: PEPCID DPS20 MG PO (19:38)
[2016-09-01] MEDS ORDERED: DEMADEX20 MG PO (19:38)
[2016-09-01] MEDS ORDERED: DIAMOX DPS250 MG PO (19:38)
[2016-09-01] MEDS ORDERED: NEURONTIN DPS300 MG PO (19:38)
[2016-09-01] MEDS ORDERED: KLOR-CON M2020 ME1 PO (19:38)
[2016-09-01] MEDS ORDERED: CELEXA DPS20 MG PO (19:38)
[2016-09-01] MEDS ORDERED: VANCOMYCIN500 MG/20 PO (19:39)
[2016-09-01] MEDS ORDERED: VITAMIN D1000 UNI1 PO (19:39)
[2016-09-01] MEDS ORDERED: DAKIN S TP (19:40)
[2016-09-01] MEDS ORDERED: CUBICIN500 MG IV (19:40)
[2016-09-01] MEDS ORDERED: NORMAL SALINE FL5 ML IV (19:40)
[2016-09-01] MEDS ORDERED: ZOSYN 3.373.375 GM/5 IV (19:41)
[2016-09-01] MEDS ORDERED: BENADRYL-DPS25 MG PO (19:41)
[2016-09-01] MEDS ORDERED: NORCO 10-325 T1 EACH PO (19:41)
[2016-09-01] MEDS ORDERED: COMPAZINE DPS5 MG PO (19:41)
[2016-09-01] MEDS ORDERED: MILK OF MAGNESI10 ML PO (19:42)
[2016-09-01] MEDS ORDERED: MAALOX DPS30 ML PO (19:42)
[2016-09-01] MEDS ORDERED: NORCO 5-325 TA1 EACH PO (19:42)
[2016-09-01] MEDS ORDERED: NORCO 7.5-3251 EACH PO (19:42)
[2016-09-01] MEDS ORDERED: SENOKOT S1 TAB PO (19:43)
[2016-09-01] MEDS ORDERED: SURFAK DPS240 MG PO (19:45)
[2016-09-01] MEDS ORDERED: TYLENOL DPS325 MG PO (19:45)
[2016-09-01] MEDS ORDERED: DUONEB DPS3 ML IH (19:46)
[2016-09-01] MEDS ORDERED: XANAX DPS0.25 MG PO (19:46)
[2016-09-01] MEDS ORDERED: TYLENOL DP650 MG/20. PO (19:46)
[2016-09-01] MEDS ORDERED: PROVENTIL HFA6.7 GM IH (19:47)
[2016-09-01] MEDS ORDERED: DULCOLAX-DPS10 MG PR (19:47)
--- NOTE | 2016-09-17 08:33 | DS ---
ADMIT: 08/16/2016 RM/LOC: 528 [facility] MR#: [id number] [address] [address] [place] [address] Discharge Summary SEX: F AGE: 61 : 1955 ADMISSION DATE: 08/16/2016 DISCHARGE DATE: 08/31/2016 ADMITTING DIAGNOSIS: Right hip wound. PROCEDURES PERFORMED: We did MRI and CT arthrogram. We did two I and Ds with wound VAC placement. CONDITION ON DISCHARGE: Stable. She also had a blood transfusion while inhouse. She had consultations by Infectious Disease, the Primary Care Medicine Service, and Neurology while in the hospital. MEDICATIONS ON DISCHARGE: She had her home medicines that were reconciled. No new medicines. HOSPITAL COURSE: Ms. Hull had previously had a TFN placed for a femoral stress fracture. She had been admitted for a long period of time with infection of unknown origin and at that time, waited quite a while until she was cleared for surgery. After getting clearance by the Medicine and Infectious Disease, we went ahead and did the surgery. Postoperatively, we waited about a month for the proximal wound to heal, had persistent drainage from that wound and so we brought her back to the hospital to do an I and D. Upon doing the I and D, we found a very large pocket of fat necrosis and took a bunch to culture out of that and that was growing multiple organisms. So, I had her admitted. I had Infectious Disease and Medicine Service to see her. I was planning then to do a second I and D three days later. When I came to preop her for then, she was found to have a new onset of double vision and is recommended by the primary care service that we hold off on any more surgeries until we get a Neurology consult. Neurology was consulted and they had recommended getting an MRI to rule out an aneurysm that she has polycystic kidney disease. Attempted to get an MRI here. We were unable to get that done here for logistic reasons. So, we got her set up to do it at [facility] and that did not work out either. So, we ended up getting the CT arthrogram to rule out aneurysm. This was very extensive delay in care. Once that was done, we had her cleared again for surgery. I took her back for ADMIT: 08/16/2016 RM/LOC: 528 [facility] MR#: [id number] [address] [address] [place] [address] Discharge Summary SEX: F AGE: 61 : 1955 another washout. I washed out and placed a wound VAC. Postoperatively, it was found that she spontaneously started bleeding quite a bit into the Wound VAC. So I had to take the wound VAC off and put a pressure packing into the wound. This continued to bleed copiously and so we discontinued to pack it, reinforced the packing and put a pressure dressing and actually at one point, did come up and chemically cauterize some skin bleeders there at the bed side. Once we got the bleeding under good control, she did require blood transfusion. Ultimately, did recover well from that and then was discharged back to her facility with her home medicines being reconciled by the primary care physician and then she was set up to see me in a couple weeks. Also will be following up two to three times a week with the wound care for care of the wound VAC. Efraín Shane MD/ hilary JOB #: [id number] CC: Efraín Shane MD, Attending Physician Alexandru Chris MD, Family Physician
--- NOTE | 2016-09-19 10:16 | CO ---
ADMIT: 08/16/2016 RM/LOC: 528 [facility] MR#: [id number] [address] [address] [place] [address] Consultation SEX: F AGE: 61 : 1955 DATE OF CONSULTATION: 08/19/2016 ATTENDING PHYSICIAN: Efraín Shane CONSULTING PHYSICIAN: Adrien Cerda MD REASON FOR CONSULTATION: Double vision. HISTORY OF PRESENT ILLNESS: The patient is a 61-year-old woman with a complex past medical history, who was admitted with repeated infections at this time with right hip infection. She has a history of left leg abscess with multi resistant Pseudomonas. The patient was admitted on 08/16 and she was planned to have the surgery today, however, yesterday she developed some blurry vision. The CT of the head obtained did not show any acute changes. Overnight the patient noted that she had double vision and it was noted she has dysconjugate gaze. Neurology was consulted. PAST MEDICAL HISTORY: As mentioned above is complex consisting of; multiple infection abscesses, delirium, Clostridium difficile colitis, chronic kidney disease, remote history of breast cancer, sleep apnea, morbid obesity, atrial fibrillation, history of DVTs and PEs, rheumatoid arthritis. ALLERGIES: THE PATIENT IS ALLERGIC TO MACROLIDE, PHENYLEPHRINE, GUAIFENESIN, CLARITHROMYCIN, LETROZOLE, AND ADALIMUMAB. MEDICATIONS: On outpatient basis include: 1. Celexa. 2. Lipitor. 3. Lotensin. 4. Neurontin. 5. Pepcid. 6. Tiazac. 7. Vitamin D. 8. Ancef. 9. Vancomycin. 10.Zosyn. 11.Anticoagulation. SOCIAL HISTORY: The patient does not smoke, does not drink alcohol. REVIEW OF SYSTEMS: All systems reviewed, negative except as per HPI. FAMILY HISTORY: Noncontributory. PHYSICAL EXAMINATION: VITAL SIGNS: Temperature 98.2, heart rate 79, respirations 20, blood pressure 95/68, saturation 94% on O2. GENERAL: The patient appears to be in no acute discomfort. HEAD: Normocephalic. NECK: Supple. ADMIT: 08/16/2016 RM/LOC: 528 [facility] MR#: [id number] [address] [address] [place] [address] Consultation SEX: F AGE: 61 : 1955 CHEST: Normal respiratory raises. CARDIOVASCULAR: Regular rate and rhythm. EXTREMITIES: No clubbing or cyanosis. NEUROLOGICAL EXAM: The patient is awake, alert, appropriately oriented. Speech and language are intact. Memory is intact. She gives concise history. Mood stable. Affect is congruent with mood. Cranial nerve examination reveals normal visual osorio. Pupils appeared to be equal, changes status post bilateral cataract noted. Extraocular muscles, the patient does have double vision at baseline, which is worse in near gaze. She has worse double vision when she looks in the right upper corner, into right upper direction. It normalizes in right lower direction. Facial sensation is normal. Face is symmetric. Hearing to voice is intact. Uvula midline. Palatal arch is symmetric. Shoulder shrug symmetric. Tongue is midline, fairly moveable. Motor examination limited due to body habitus. There appears to be no localized weakness. Sensory is nonlateralizing to touch and temperature. Coordination with upper extremities normal. Reflexes difficult to obtain secondary to body habitus. Gait deferred. 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 PLAN: The patient is going to have MRI and MRA. The patient will be seen by Ophthalmology. Further workup and management as per findings. Thank you very much for this interesting consultation. We will continue to follow along. Adrien Cerda MD/ hilary JOB #: [id number] CC: Efraín Shane, Attending Physician Alexandru Chris, Family Physician
== END 2016-08-31 17:00 | DRG 464 ==
LOC: SSS 06:28 → 5MS 06:29 → 6PED 06:29 → 5MS 12:57 → SSS 13:32 → 5MS 08-17 13:56
PROVIDERS: ADMIT Student in an Organized Health Care Education/Training Program
PROC: 0HBHXZZ Excision of Right Upper Leg Skin, External Approach (ICD-10-PCS; principal; 2016-08-16)
PROC: 0JDL0ZZ Extraction of Right Upper Leg Subcutaneous Tissue and Fascia, Open Approach (ICD-10-PCS; principal; 2016-08-16)
PROC: 30233N1 Transfusion of Nonautologous Red Blood Cells into Peripheral Vein, Percutaneous Approach (ICD-10-PCS; 2016-08-20)
PROC: 0JBL0ZZ Excision of Right Upper Leg Subcutaneous Tissue and Fascia, Open Approach (ICD-10-PCS; 2016-08-25)
PROC: 3E01329 Introduction of Other Anti-infective into Subcutaneous Tissue, Percutaneous Approach (ICD-10-PCS; 2016-08-25)
PROC: 0Y3C0ZZ Control Bleeding in Right Upper Leg, Open Approach (ICD-10-PCS; 2016-08-25)
DX: T84.620A Infection and inflammatory reaction due to internal fixation device of right femur, initial encounter (principal); T81.31XA Disruption of external operation (surgical) wound, not elsewhere classified, initial encounter; E46 Unspecified protein-calorie malnutrition; H47.10 Unspecified papilledema; H49.10 Fourth [trochlear] nerve palsy, unspecified eye; Q61.3 Polycystic kidney, unspecified; N18.4 Chronic kidney disease, stage 4 (severe); Q44.6 Cystic disease of liver; I48.0 Paroxysmal atrial fibrillation; I10 Essential (primary) hypertension; L02.415 Cutaneous abscess of right lower limb; N25.81 Secondary hyperparathyroidism of renal origin; J98.11 Atelectasis; D62 Acute posthemorrhagic anemia; N25.0 Renal osteodystrophy; E66.01 Morbid (severe) obesity due to excess calories; J44.9 Chronic obstructive pulmonary disease, unspecified; M06.9 Rheumatoid arthritis, unspecified; M79.7 Fibromyalgia; M19.90 Unspecified osteoarthritis, unspecified site; J45.909 Unspecified asthma, uncomplicated; H53.8 Other visual disturbances; G47.33 Obstructive sleep apnea (adult) (pediatric); E78.5 Hyperlipidemia, unspecified; D63.8 Anemia in other chronic diseases classified elsewhere; M47.896 Other spondylosis, lumbar region; G93.2 Benign intracranial hypertension; E87.6 Hypokalemia; R41.0 Disorientation, unspecified; E83.42 Hypomagnesemia; B96.5 Pseudomonas (aeruginosa) (mallei) (pseudomallei) as the cause of diseases classified elsewhere; B95.62 Methicillin resistant Staphylococcus aureus infection as the cause of diseases classified elsewhere; M81.0 Age-related osteoporosis without current pathological fracture; Z96.653 Presence of artificial knee joint, bilateral; Z85.3 Personal history of malignant neoplasm of breast; Z86.711 Personal history of pulmonary embolism; Z86.718 Personal history of other venous thrombosis and embolism; Z79.01 Long term (current) use of anticoagulants; Z96.641 Presence of right artificial hip joint

== ENCOUNTER → 2016-09-01 | Outpatient (CLI) | payer BC ==
[~2016-09-01] MED LIST changes: +DAKIN S TP; +DIAMOX DPS250 MG PO; +KLOR-CON M2020 ME1 PO; +NORCO 10-325 T1 EACH PO; +NORCO 7.5-3251 EACH PO; +NORMAL SALINE FL5 ML IV; +TYLENOL DP650 MG/20. PO; +VANCOMYCIN500 MG/20 PO; +ZOSYN 3.373.375 GM/5 IV
== END | disposition home or self-care (01) ==
LOC: THER.SSS 17:33
DX: Z45.2 Encounter for adjustment and management of vascular access device (principal)

== ENCOUNTER 2016-09-07 09:14 | Inpatient (IN) | payer BC ==
[~2016-09-07] VITALS: Ht 172.7 cm
--- NOTE | 2016-09-12 07:52 | HP ---
ADMIT: 09/07/2016 RM/LOC: 433 [facility] MR#: [id number] [address] [address] [place] [address] History and Physical SEX: F AGE: 61 : 1955 DATE OF SERVICE: CHIEF COMPLAINT: Fever, vomiting, and confusion. HISTORY OF PRESENT ILLNESS: Renetta is a 61-year-old female with multiple hospitalizations here at [facility] over the past several months. She is currently a resident of [facility]. In the last 30 hours, she has had recurrent nausea and vomiting. Denies any epigastric pain, but at this time is slightly confused, not able to give much history. This morning, she had a temperature of 103 at the correction and she was transferred to the emergency room for further evaluation. Workup in the emergency room showed normal white count of 9.1, normal lactic acid of 0.9, slightly low potassium of 3.9, and magnesium low at 1.4, and she is confused and disoriented to time and place. She does recognize me. She is able to give some history, otherwise information was obtained from nursing personnel. Renetta states she started vomiting at 8 o'clock this morning. Personnel states she has been vomiting on and off for the last 2 days. She has a history of recurrent episodic nausea and vomiting related to polycystic kidneys. Her recent hospitalizations were complicated by abscess in her left subcutaneous tissues over the incision in which she had a previous arthroplasty on the left hip. This was drained, treated with antibiotics for a month, and once infection had completely healed, she underwent pinning of her right hip for a nondisplaced fracture. Unfortunately postoperatively several days to weeks later she developed a wound infection and requiring rehospitalization with incision and drainage of that. She was just hospitalized here about 2 to 3 weeks ago. She was treated with IV antibiotics, consulted with Infectious Disease and transferred back to [facility] where she was receiving initially IV Zosyn and IV daptomycin. She has finished the daptomycin and still on IV Zosyn. She also has had problems with C. diff enteritis and prophylactically was placed on oral vancomycin. In the last 24 hours, she is not keeping any of her oral medications down. In the emergency room, no obvious source for her fever was found. Chest x-ray showed some haziness in the left side, but no infiltrates. As mentioned, her white count was normal. UA at this time is pending. There was some concern for sepsis, although her lactic acid was normal. Procalcitonin is pending. With the nausea and vomiting, she is mildly dehydrated and will be admitted to the hospital for IV fluids and cultures. IV antibiotics will be continued. She does have a wound VAC in place over right hip, and there has not been purulent discharge, but it is possible this is the source of her fever. PAST MEDICAL HISTORY: Documented in all of her recent history and physicals. Additionally, she had the nondisplaced right hip fracture recently pinned and several days later wound abscess. Additionally, she has polycystic kidney and polycystic liver with chronic kidney disease, hypertension, hyperlipidemia, ADMIT: 09/07/2016 RM/LOC: 433 [facility] MR#: [id number] [address] [place] [phone] [place] [address] History and Physical SEX: F AGE: 61 : 1955 chronic obstructive pulmonary disease, rheumatoid arthritis, morbid obesity, sleep apnea, prior history of pulmonary emboli, history of osteoporosis most likely secondary to her chronic renal disease, and prior history of atrial fibrillation. PAST SURGICAL HISTORY: Previous surgeries include bilateral total knee, previous replacement of the left hip, and then pinning of the right hip. MEDICATIONS: Currently are: 1. Lortab 5/325 one every 6 hours p.r.n. for pain. 2. Diamox Sequels 500 mg b.i.d. 3. Potassium 20 mEq b.i.d. 4. Demadex 20 mg daily. 5. Xanax 0.25 mg at bedtime p.r.n. 6. Zosyn 3.375 g IV t.i.d. 7. Vancomycin orally 125 mg currently on q.i.d. dosage. 8. Doxycycline 100 mg b.i.d. 9. Vitamin D supplement. 10.Proventil inhaler p.r.n. 11.Benadryl p.r.n. 12.Senokot p.r.n. 13.Celexa 20 mg daily. 14.Lotensin 20 mg daily. 15.Neurontin 300 mg b.i.d. 16.Diltiazem CD 180 mg daily. 17.Lipitor 20 mg daily. 18.Eliquis 5 mg b.i.d. 19.Pepcid 20 mg b.i.d. Social history, family history, and review of systems all unchanged other than noted above. PHYSICAL EXAMINATION: GENERAL: A 61-year-old female, she is confused. She recognizes me, but does not know where she is at or what day or what year it is. VITAL SIGNS: In the emergency room showed a blood pressure of 128/80, respiratory rate 22, temp was 99.1, O2 saturation 93% on room air, and respiratory rate 22. HEENT: Eyes; PERRLA. EOMs intact. Sclerae are nonicteric. Tympanic membranes not visualized. Throat is dry, but not inflamed. NECK: Supple. LUNGS: Clear to auscultation. Respirations not labored. Occasional expiratory wheeze noted. HEART: Regular rate. No murmur. BREASTS: Not examined. ABDOMEN: Obese with multiple masses palpable, which are stable and consistent with her polycystic kidney and polycystic liver. She has a large panniculus with some edema of the dependent portions of the panniculus both in midline ADMIT: 09/07/2016 RM/LOC: 433 [facility] MR#: [id number] [facility] [place] [id number] [place] [address] History and Physical SEX: F AGE: 61 : 1955 and laterally. EXTREMITIES: Chronic venous stasis dermatitis changes of lower extremities with pitting edema. Wound VAC is present over the incision in the right hip. There are no signs of any surrounding cellulitis, although there is some erythema of the skin, but it is more due to dependent edema. There is a previous incision in previous area of abscess is well healed, but no signs of any tenderness or erythema. DIAGNOSTIC IMPRESSION: 1. Recurrent nausea and vomiting most likely secondary to her polycystic kidney. 2. Dehydration. 3. Fever, rule out sepsis. 4. Status post recent right hip abscess. 5. Recent Clostridium difficile enteritis. 6. Polycystic kidney. 7. Chronic kidney disease. 8. Hypertension. 9. Prior history of atrial fibrillation. 10.History of rheumatoid arthritis. 11.History of depression. 12.Hypokalemia. 13.Hypomagnesemia. 14.Prior history of pulmonary emboli. 15.Prior history of breast cancer. No evidence of recurrence. 16.Hyperparathyroidism with resultant osteoporosis. PLAN: We will get cultures of blood and urine. Continue on IV Zosyn for now. We will get Infectious Disease consult with Dr. Hale, orthopedic consult with Dr. Shane, and renal consult with Dr. Johnson. Alexandru Chris MD/ hilary JOB #: [id number] CC: Alexandru Chris MD, Attending Physician Alexandru Chris MD, Family Physician
--- NOTE | 2016-09-13 15:34 | CB ---
ADMIT: 09/07/2016 RM/LOC: 433 [facility] MR#: [id number] [address] [address] [place] [address] Code Blue Report SEX: F AGE: 61 : 1955 DATE: 09/07/2016 This is a code. A 61-year-old white female coded and I responded to the code. She was unresponsive in VFib as well as being bagged. This lady has had significant medical problems and hospitalizations secondary to an abscessed right hip. She also has COPD; chronic kidney disease, polycystic kidneys; hypertension; hyperlipidemia; rheumatoid arthritis; obstructive sleep apnea; prior pulmonary emboli, which she had been taken off her anticoagulant; and AFib as well as a history of V-tach. I refer you to old records. At this time, on my arrival, she was in full code and VFib, no pulse, no pressure. She had been given amiodarone, epi, and defibrillated several times, I refer you to code sheet. Finally, after approximately 30 minutes of coding and did intubate her, which the [employer] student did under my supervision without problem. We finally called the code with essentially PEA. Time of was 1554 hours. Joe Cota MD/ hilary JOB #: [id number] CC: Alexandru Chris MD, Attending Physician Alexandru Chris MD, Family Physician
--- NOTE | 2016-09-14 08:12 | DS ---
ADMIT: 09/07/2016 RM/LOC: 433 [facility] MR#: [id number] [address] [address] [place] [address] General Discharge Summary SEX: F AGE: 61 : 1955 ADMISSION DATE: 09/07/2016 DISCHARGE DATE: 09/07/2016 DATE OF : 09/07/2016. ADMITTING DIAGNOSIS: Recurrent fever, rule out sepsis. COMPLICATING DIAGNOSES: 1. Acute gastroenteritis. 2. Polycystic kidneys. 3. Chronic renal failure. 4. Morbid obesity. 5. Prior history of atrial fibrillation. 6. Chronic obstructive pulmonary disease. 7. Osteoporosis. CONSULTANTS: Kerrie Hale MD; Mayi Johnson MD; [facility]. FINAL DIAGNOSIS: Acute respiratory failure with ventricular fibrillation and subsequent . CHIEF COMPLAINT AND HISTORY OF PRESENT ILLNESS: Please see history and physical for details. Briefly, a 61-year-old female with multiple hospitalizations, here at [facility] over the past several months. She is currently a resident at [facility]. In the last 30 hours, she has had recurrent nausea and vomiting. She denies any epigastric pain, but at the time of admission was slightly confused, not able to give much history. This morning at the alf, she had a temperature of 103, was transferred from her alf to emergency room for further evaluation. Workup in the emergency room showed a normal white count of 9.1, normal lactic acid of 0.9, potassium slightly low, magnesium low at 1.4. Chest x-ray did not show any acute infiltrates. She has had multiple hospitalizations for abscess over the left hip and now over the right hip. She has also had ADMIT: 09/07/2016 RM/LOC: 433 [facility] MR#: [id number] [address] [address] [place] [address] General Discharge Summary SEX: F AGE: 61 : 1955 episodes of gout. She also had recent C. diff enteritis due to all of her antibiotics. Chest x-ray showed no significant interval change. EKG on admission showed sinus tachycardia, nonspecific ST-T changes. Laboratory values are not in the computer at the time of dictation. COURSE IN HOSPITAL: The patient was admitted. A few hours after admission, she had a respiratory arrest. Dr. Cota from emergency room responded to the Code Blue. She was in V-fib. After she being intubated, given CPR and medications. She did not respond and she was pronounced at 1554 hours. Cause of was respiratory arrest and V-fib. Alexadnru Chris MD/ hilary JOB #: [id number] CC: Alexandru Chris MD, Attending Physician Alexandru Chris MD, Family Physician
--- NOTE | 2016-09-19 10:17 | ER ---
ADMIT: 09/07/2016 RM/LOC: 433 [facility] MR#: [id number] [address] [address] [place] [address] Emergency Room Report SEX: F AGE: 61 : 1955 DATE: 09/07/2016 ADDENDUM: CHIEF COMPLAINT: Fever and vomiting. HISTORY OF PRESENT ILLNESS: This is a 61-year-old female, who came from [facility], sounds like she developed a low-grade fever this morning. She has been having vomiting since yesterday. She already has a diagnosis of C. difficile and a healing wound on her left hip. Has an indwelling catheter. There are multiple contributions that can be causing her fever. She is already on Zosyn IV, Vanco oral. Sepsis protocol was ordered down here in the emergency room. OVERALL FINDINGS: Her lactic acid is 0.9. CBC is normal except for hemoglobin of 10.9. PT and INR are 12.6 and 1.2. EKG showed sinus tach. Procalcitonin is 0.38. CMP is normal except for low potassium at 2.9. I did speak with Dr. Chris, he will be replacing this. Dr. Chris actually came down to the ER to see the patient. CLINICAL IMPRESSION: 1. Fever. 2. Wound on right hip with a wound VAC. 3. Clostridium difficile. 4. Indwelling catheter. I did ask Dr. Chris if he wanted to start any other antibiotics down here in the emergency room. She already, again, has Zosyn and Vanco at this time. At this time, he is not starting any new antibiotics. He is consulting Infectious Disease before he changes any orders. DISPOSITION: She is stable at admit. TIM Conde / Joe Cota MD / hilary JOB #: [id number] CC: Alexandru Chris MD, Attending Physician Alexandru Chris MD, Family Physician
--- NOTE | 2016-09-20 10:41 | CO ---
ADMIT: 09/07/2016 RM/LOC: 433 [facility] MR#: [id number] [address] [address] [place] [address] Consultation SEX: F AGE: 61 : 1955 DATE OF CONSULTATION: 09/07/2016 ATTENDING PHYSICIAN: Alexandru Chris MD CONSULTING PHYSICIAN: Mayi Johnson MD REASON FOR CONSULTATION: Chronic kidney disease, stage 4. HISTORY OF PRESENT ILLNESS: The patient is a 61-year-old female, who is well known to me. She was recently hospitalized with an abscess of her right hip status post I and D. she was discharged home on IV antibiotics. She was discharged to [facility]. She presented to the ER today with a chief complaint of fever. Her fever was as high as 103 Fahrenheit. Significant ongoing renal issues include volume expansion. She was being diuresed with torsemide. She was on acetazolamide for elevated intracranial pressures. Her weight is down to 352 pounds from 384 pounds upon discharge about a week ago. Renetta states that she has been having vomiting for approximately 2 to 3 days. She has had no oral intake whatsoever. She feels very weak. Her breathing is fair. Denies any productive cough. Denies any dyspnea. Denies any urinary complaints. She notes that her swelling has much improved. REVIEW OF SYSTEMS: A complete review of systems is negative in detail except as mentioned in history of present illness above. PAST MEDICAL HISTORY: 1. Polycystic kidney disease. 2. Chronic kidney disease, stage 4 with baseline creatinine that generally runs in the low 2s prior to her most recent hospitalization. 3. Hypertension. 4. Renal osteodystrophy-secondary hyperparathyroidism and vitamin D deficiency. 5. Osteoarthritis. 6. Fibromyalgia. 7. Dyslipidemia. 8. Rheumatoid arthritis. 9. Depression. 10.Asthma. 11.PE. 12.DVT. MEDICATIONS: Reviewed in the chart. FAMILY HISTORY: Polycystic kidney disease runs in her family. She has numerous family members suspected with this condition including her siblings. SOCIAL HISTORY: She is . She was living at home previously and was most recently transferred to [facility] from the hospital last week. No tobacco, alcohol, or recreational drug use. ADMIT: 09/07/2016 RM/LOC: 433 [facility] MR#: [id number] [facility] [address] [address] [place] [address] Consultation SEX: F AGE: 61 : 1955 ALLERGIES: ENTEX, BIAXIN, FEMARA, MACROLIDE ANTIBIOTICS, PHENYLEPHRINE, CLARITHROMYCIN, LETROZOLE, AND ADALIMUMAB. PHYSICAL EXAMINATION: VITAL SIGNS: Temperature 101.1 Fahrenheit, pulse is 111, blood pressure 130/74, weight is 252 pounds. GENERAL: She is in bed and appears weak. HEENT: Head is nontraumatic and normocephalic. Extraocular movements are intact. CHEST: Clear to auscultation. CVS: Regular rhythm. S1, S2 heard. No rubs, murmurs, or gallops. ABDOMEN: Soft and obese. EXTREMITIES: 1+ bilateral lower extremity edema. NEUROLOGIC: She is alert and oriented. LABORATORY DATA: Reviewed. BMP with sodium 141, potassium 2.9, creatinine 1.5, CO2 of 26, hemoglobin 10.9, albumin 2.5, magnesium 1.4. Chest x-ray without any acute cardiopulmonary process. She did have some mild peribronchial coughing. ASSESSMENT AND PLAN: 1. Chronic kidney disease, stage 4-secondary to polycystic kidney disease- stable kidney function. 2. Volume expansion/edema-much improved. Weight is down to 352 pounds compared to 384 pounds upon discharge last week. Hold her diuretics now that she is getting IV fluids. 3. Hypokalemia-secondary to torsemide, acetazolamide, and decreased oral intake. Replete for the time being and hold diuretics. 4. Hypomagnesemia-replete with IV magnesium sulfate. Thank you for this consultation. Please do not hesitate to contact me with any questions. Mayi Johnson MD/ hilary JOB #: [id number] CC: Alexandru Chris MD, Attending Physician Alexandru Chris MD, Family Physician
--- NOTE | 2016-09-20 11:16 | CO ---
ADMIT: 09/07/2016 RM/LOC: 433 [facility] MR#: [id number] [address] [address] [place] [address] Consultation SEX: F AGE: 61 : 1955 DATE OF CONSULTATION: 09/07/2016 ATTENDING PHYSICIAN: Alexandru Chris MD CONSULTING PHYSICIAN: Kerrie Hale MD REASON FOR CONSULTATION: Fever. Thank you, Dr. Chris, for the consult and involving me in this patient's care. HISTORY OF PRESENT ILLNESS: Ms. Stokes is a 61-year-old woman with multiple medical problems, who has had multiple hospitalizations within the last few months. She was in the hospital in July with right hip pain and was found to have right hip wound dehiscence and infection complicated by Pseudomonas infection and MRSA. She underwent incision and drainage twice and was later discharged to long-term on Zosyn and oral doxycycline. She also has a history of C diff colitis and is on chronic oral vancomycin. She has a large defect on the right hip and currently managed by wound VAC. She presented to ER with complaint of fever of 103. She also noted nausea and vomiting since last few days. She complains of pain in her left great toe associated with redness and pain in all her joints. PAST MEDICAL HISTORY: Chronic kidney disease, asthma, remote history of breast cancer status post lumpectomy; polycystic kidney disease, hypertension, hyperlipidemia; left thigh multi-drug resistant pseudomonas abscess, status post drainage; sleep apnea, morbid obesity, Clostridium difficile colitis, rheumatoid arthritis, gout, lumbar spondylosis, history of DVT and PE, atrial fibrillation. PAST SURGICAL HISTORY: Bilateral knee replacement, left subtrochanteric femur fracture, and right femur fracture, status post repair and shoulder surgery. ALLERGIES: TO MACROLIDE, PHENYLEPHRINE, GUANFACINE, CLARITHROMYCIN, LETROZOLE, AND ADALIMUMAB. CURRENT MEDICATIONS: Reviewed. SOCIAL HISTORY: Currently lives at long-term. Denies any smoking, alcohol, or recreational drug use. FAMILY HISTORY: Significant for breast cancer in a sister. REVIEW OF SYSTEMS: A 10-point review of systems is negative except as mentioned in the HPI. PHYSICAL EXAMINATION: VITAL SIGNS: Current temperature 100.2, T-max was 101.1, heart rate is 96, respirations 18, blood pressure 130/73, 98% on room air. ADMIT: 09/07/2016 RM/LOC: 433 [facility] MR#: [id number] [address] [address] [place] [address] Consultation SEX: F AGE: 61 : 1955 GENERAL: In no acute distress. HEENT: Head is normocephalic and atraumatic. Extraocular movements intact. LYMPH: No palpable anterior/posterior cervical or supraclavicular lymphadenopathy. CHEST: Mild wheezing bilaterally. CARDIOVASCULAR: S1 and S2 heard. Tachycardia. ABDOMEN: Soft, obese, and nontender. MUSCULOSKELETAL: There is significant erythema on her left toe and on the metacarpophalangeal joint and tenderness to palpation and on range of motion. The right hip surgical defect now measures 9 x 5-1/2 x 15+ cm which has wound VAC placed. There is no surrounding erythema or induration at this time. LABORATORY DATA: Reviewed. CBC is 9.1. CMP shows a creatinine of 1.5. ASSESSMENT AND PLAN: 1. Fever, likely secondary to left great toe acute gout episode. She is clinically stable and her labs are not suggestive of any other localizing infection at this time. The right hip wound erythema and induration has significantly improved since discharge. We will consult Rheumatology, Dr. Saldivar for possible left great toe steroid injection. 2. Right hip methicillin-resistant Staphylococcus aureus and Pseudomonas abscess. Continue Zosyn and we will switch to IV daptomycin. 3. History of Clostridium difficile colitis. Continue oral vancomycin. 4. Right hip wound. Continue wound VAC. 5. Chronic kidney disease. 6. Polycystic kidney disease. Thank you for the consult. I will continue to follow the patient. Kerrie Hale MD/ hilary JOB #: [id number] CC: Alexandru Chris MD, Attending Physician Alexandru Chris MD, Family Physician
== END 2016-09-07 15:54 | disposition expired | DRG 871 ==
LOC: ER 09:14 → 4PCU 10:50
PROVIDERS: ADMIT Family Medicine
DX: A41.9 Sepsis, unspecified organism (principal); J96.00 Acute respiratory failure, unspecified whether with hypoxia or hypercapnia; R09.2 Respiratory arrest; A04.7 Enterocolitis due to Clostridium difficile; I48.91 Unspecified atrial fibrillation; N18.4 Chronic kidney disease, stage 4 (severe); Q61.3 Polycystic kidney, unspecified; E86.0 Dehydration; I10 Essential (primary) hypertension; L02.415 Cutaneous abscess of right lower limb; Q44.6 Cystic disease of liver; K52.9 Noninfective gastroenteritis and colitis, unspecified; R50.9 Fever, unspecified; I49.01 Ventricular fibrillation; M10.9 Gout, unspecified; R41.0 Disorientation, unspecified; E78.5 Hyperlipidemia, unspecified; B95.62 Methicillin resistant Staphylococcus aureus infection as the cause of diseases classified elsewhere; A49.8 Other bacterial infections of unspecified site; G47.33 Obstructive sleep apnea (adult) (pediatric); J44.9 Chronic obstructive pulmonary disease, unspecified; M06.9 Rheumatoid arthritis, unspecified; E66.01 Morbid (severe) obesity due to excess calories; M81.0 Age-related osteoporosis without current pathological fracture; F32.9 Major depressive disorder, single episode, unspecified; E87.6 Hypokalemia; E83.42 Hypomagnesemia; E21.3 Hyperparathyroidism, unspecified; I87.8 Other specified disorders of veins; N25.0 Renal osteodystrophy; E55.9 Vitamin D deficiency, unspecified; M79.7 Fibromyalgia; J45.909 Unspecified asthma, uncomplicated; Z86.718 Personal history of other venous thrombosis and embolism; Z96.653 Presence of artificial knee joint, bilateral; Z86.711 Personal history of pulmonary embolism; Z85.3 Personal history of malignant neoplasm of breast